=== PATIENT | male | born 1995 | race Hispanic/Latino ===

== ENCOUNTER 2021-01-22 17:20 | Emergency (ER) | payer SELFPAY ==
[~2021-01-22] VITALS: Ht 170.2 cm; Wt 90.7 kg
[2021-01-22] MEDS ORDERED: CYCLOBENZAPRINE10 MG PO (17:39)
[2021-01-22] MEDS ORDERED: IBUPROFEN600 MG PO (17:39)
== END 2021-01-22 18:04 | disposition home or self-care (01) ==
LOC: FSED 17:36
DX: R07.89 Other chest pain (principal); E11.9 Type 2 diabetes mellitus without complications
CPT/HCPCS: 71046; 93005; 99283